=== PATIENT | female | born 1995 | race Caucasian/White ===

== ENCOUNTER 2018-07-01 17:45 | Observation (INO) | payer MEDICAID ==
[~2018-07-01] VITALS: Ht 175.3 cm; Wt 106.1 kg
== END 2018-07-01 20:23 | disposition home or self-care (01) ==
LOC: SPU 17:45
PROVIDERS: ADMIT Obstetrics & Gynecology; ATTEND Obstetrics & Gynecology
DX: O42.913 Preterm premature rupture of membranes, unspecified as to length of time between rupture and onset of labor, third trimester (principal); O26.893 Other specified pregnancy related conditions, third trimester; R10.9 Unspecified abdominal pain; Z3A.29 29 weeks gestation of pregnancy
CPT/HCPCS: 76815; 81002; G0378